=== PATIENT | female | born 2005 | race Caucasian/White ===

== ENCOUNTER 2023-04-04 07:57 | Emergency (ER) | payer OTHER ==
[~2023-04-04] VITALS: Ht 157.5 cm; Wt 75.0 kg
[2023-04-04] MEDS ORDERED: IBUPROFEN 800MG TABLET PO ONE (08:30)
[2023-04-04] MEDS ORDERED: IBUP-2030 MT (08:37)
[2023-04-04 09:00] VITALS: BP 112/67
== END 2023-04-04 09:02 | disposition home or self-care (01) ==
LOC: ER 07:57
DX: S83.92XA Sprain of unspecified site of left knee, initial encounter (principal); W18.30XA Fall on same level, unspecified, initial encounter; Y93.89 Activity, other specified; Y92.89 Other specified places as the place of occurrence of the external cause; Y99.8 Other external cause status
CPT/HCPCS: 73562; 81025; 99283